=== PATIENT | female | born 1995 | race Caucasian/White ===

== ENCOUNTER 2022-07-14 12:33 | Emergency (ER) | payer OTHER ==
[2022-07-14 12:57] VITALS: TEMP 97.9; BMI 20.5
[2022-07-14] MEDS ORDERED: SODIUM CHLORIDE 0.9% 1000 ML INFUS.BAG IV ONE (13:45)
[2022-07-14 15:07] LABS: BASO % 0.3 % (0-2.0); EOS % 1.1 % (0-4.5); HEMATOCRIT 38.3 % (32.4-45.2); HEMOGLOBIN 12.8 GM/dL (10.7-15.3); LYMPH % 22.7 % (8-40); MCHC 33.5 g/dl (32.0-36.0); MEAN CELL VOLUME 80.6 fl (80-96); MEAN PLT VOLUME 9.2 fl (7.5-11.1); MONO % 6.4 % (3.8-10.2); NEUT % 69.5 % (42.8-82.8); PLATELET COUNT 223 10^3/uL (134-434); RBC 4.75 M/mm3 (3.60-5.2); RDW 15.4 % (11.6-15.6); WHITE BLOOD COUNT 7.5 K/mm3 (4.0-10.0)
[2022-07-14 15:33] VITALS: RESP 16
[2022-07-14 15:34] LABS: CALCIUM 8.7 mg/dL (8.5-10.1)
[2022-07-14 15:35] LABS: ALBUMIN 3.5 g/dl (3.4-5.0); BLOOD UREA NITROGEN 9.8 mg/dL (7-18)
[2022-07-14 15:38] LABS: CREATININE 0.7 mg/dL (0.55-1.3)
[2022-07-14 15:40] LABS: BILIRUBIN,TOTAL 0.3 mg/dL (0.2-1); TOT PROT 7.2 g/dl (6.4-8.2)
[2022-07-14 16:35] VITALS: BP 103/55; PULSE 67
== END 2022-07-14 16:44 | disposition home or self-care (01) ==
LOC: JER 12:33
DX: R42 Dizziness and giddiness (principal); R11.0 Nausea
CPT/HCPCS: 36415; 80053; 84484; 84703; 85025; 93005; 93010; 99284-25